=== PATIENT | female | born 1950 | race Caucasian/White ===

== ENCOUNTER 2020-01-08 10:42 | Emergency (ER) | payer MEDICARE, BC ==
[~2020-01-08] VITALS: Ht 170.2 cm; Wt 102.3 kg
[2020-01-08 10:48] VITALS: TEMP 97
[2020-01-08] MEDS ORDERED: ASPIRIN 81M81 MG/TA2 PO (11:30)
[2020-01-08] MEDS ORDERED: ZESTRIL40 MG PO (11:30)
[2020-01-08 11:31] LABS: BASO # 0.1 (0.0-0.2); BASO % 0.8 % (0.0-2.0); EOS # 0.3 (0.0-0.7); EOS % 3.9 % (0-4.0); GRAN # 4.9 (1.4-6.5); GRAN % 56.4 % (42.2-75.2); HEMOGLOBIN 14.5 g/dl (12.5-16.0); LYMPH # 2.7 (1.2-3.4); LYMPH % 31.2 % (20.0-51.0); MEAN CELL VOLUME 82 fl (80.0-100.0); MEAN CORPUSCULAR HEMOGLOBIN 28 pg (27.0-31.0); MEAN CORPUSCULAR HGB CONC 34 g/dl (33.0-37.0); MEAN PLATELET VOLUME 11.7 fl (7.4-10.4); MONO # 0.6 (0.1-0.6); MONO % 7.1 % (1.7-9.3); PLATELET COUNT 224 K/mm3 (130-400); RED BLOOD COUNT 5.27 M/mm3 (4.10-5.30); REDCELL DISTRIBUTION WIDTH-CV 14.5 % (11.5-14.5)
[2020-01-08] MEDS ORDERED: DIABETA 5MG5 MG/TAB PO (11:31)
[2020-01-08] MEDS ORDERED: GLUCOPHAGE1000 MG PO (11:31)
[2020-01-08 11:32] LABS: ALBUMIN 4.4 gm/dL (3.5-5.0); BILIRUBIN,TOTAL 1.4 mg/dL (0.0-1.0); CALCIUM 9.1 mg/dL (8.4-10.2); CREATININE, serum 0.61 (0.52-1.25); POTASSIUM 4.3 mmol/L (3.4-5.0); TOTAL PROTEIN 7.3 gm/dL (6.4-8.2)
[2020-01-08] MEDS ORDERED: NORVASC 5MG5 MG/TAB PO (11:32)
[2020-01-08] MEDS ORDERED: TOPROL XL 25MG25 MG PO (11:32)
[2020-01-08] MEDS ORDERED: XANAX .25M0.25 MG/TA PO (11:33)
[2020-01-08 11:54] VITALS: BP 164/79; PULSE 91
[2020-01-08] MEDS ORDERED: NORVASC 10MG10 MG PO (12:00)
== END 2020-01-08 12:15 | disposition home or self-care (01) ==
LOC: COL.ER 10:42
PROVIDERS: Family Medicine
DX: I10 Essential (primary) hypertension (principal); E11.9 Type 2 diabetes mellitus without complications; Z79.82 Long term (current) use of aspirin; Z79.84 Long term (current) use of oral hypoglycemic drugs